=== PATIENT | male | born 1955 | race Two or more races ===

== ENCOUNTER 2018-03-31 12:58 | Inpatient (IN) | payer OTHER, MEDICAID ==
[2018-03-31 13:12] LABS: ADD MAN DIFF? NO
[2018-03-31 13:15] LABS: WHITE BLOOD COUNT 6.9 10^3/ul (4.8-10.8)
[2018-03-31 13:15] LABS: BASOPHILS % 0.4 % (0.0-2.0); EOSINOPHILS # 0.2 10^3/ul (0.0-0.5); EOSINOPHILS % 2.5 % (0.0-7.0); HEMATOCRIT 45.9 % (42.0-52.0); LYMPHOCYTES % 28.4 % (15.0-51.0); MEAN CORPUSCULAR HEMOGLOBIN 28.9 pg (29.0-33.0); MEAN CORPUSCULAR HGB CONC 34.9 g/dl (32.0-37.0); MONOCYTE # 0.6 10^3/ul (0.3-0.9); MONOCYTES % 9.2 % (0.0-11.0); NEUTROPHIL # 4.1 10^3/ul (1.6-7.5); NEUTROPHILS % 59.2 % (39.0-77.0); PLATELET COUNT 280 10^3/UL (140-415); RED BLOOD COUNT 5.53 10^6/ul (4.70-6.10); RED CELL DISTRIBUTION WIDTH 12.3 % (11.5-14.5)
[2018-03-31] MEDS: morphine 4 MG/ML VIAL IV ×2 (13:18→19:45)
[2018-03-31] MEDS: ONDANSETRON 4 MG INJ IV (13:18)
[2018-03-31] MEDS: NITROGLYCERIN 2% 1 GM OINT PKT TD (13:19)
[2018-03-31 13:36] LABS: ANION GAP 16 (8-16); BLOOD UREA NITROGEN 18 mg/dl (7-20); CALCIUM 9.7 mg/dl (8.4-10.2); CARBON DIOXIDE 21 mmol/L (21-31); CHLORIDE 110 mmol/L (97-110); CREATININE 0.97 mg/dl (0.61-1.24); GLUCOSE 126 mg/dl (70-220); POTASSIUM 4.1 mmol/L (3.5-5.1); SODIUM 143 mmol/L (135-144)
[2018-03-31] MEDS ORDERED: ONDANSETRON 4 MG INJ IV ×2 (14:30→17:00)
[2018-03-31] MEDS ORDERED: ACETAMINOPHEN 325 MG TAB PO (14:30)
[2018-03-31] MEDS ORDERED: NACL 0.9% 3 ML SYG IV (17:00)
[2018-03-31] MEDS ORDERED: NITROGLYCERIN (SL) 0.4 MG TAB SL (17:00)
[2018-03-31] MEDS: ENOXAPARIN 40 MG/0.4 ML SYG SC (17:52)
[2018-03-31] MEDS: FENOFIBRATE 145 MG TAB PO (18:07)
[2018-03-31 19:16] LABS: CREATINE KINASE 194 IU/L (23-200)
[2018-03-31 19:29] LABS: CK INDEX 9.4
[2018-03-31] MEDS ORDERED: ENOXAPARIN 80 MG/0.8 ML SYG SC (20:00)
[2018-03-31] MEDS: TAMSULOSIN (SR) 0.4 MG CAP PO (21:20)
[2018-03-31] MEDS: ATORVASTATIN 20 MG TAB PO (21:20)
[2018-04-01] MEDS: morphine 2 MG INJ IV ×2 (01:45→10:00)
[2018-04-01] MEDS: HEPARIN 1000 UNITS/ML 10 ML INJ IV (02:23)
[2018-04-01] MEDS: SOD CHLORIDE 0.9% 1,000 ML IV ×3 (02:23→23:23)
[2018-04-01 02:42] LABS: CREATINE KINASE 156 IU/L (23-200)
[2018-04-01 02:52] LABS: CK INDEX 7.8
[2018-04-01] MEDS ORDERED: LIDOCAINE 1% (MDV) 10 ML INJ (02:55)
[2018-04-01] MEDS ORDERED: IODIXANOL LOCM 100 ML BTL (02:55)
[2018-04-01] MEDS ORDERED: VERAPAMIL 5 MG INJ (03:00)
[2018-04-01 03:01] LABS: HEMOGLOBIN A1C 5.5 % (0-5.9)
[2018-04-01] MEDS: ASPIRIN 325 MG TAB PO (03:02)
[2018-04-01] MEDS ORDERED: MIDAZOLAM 1 MG/ML 2 ML INJ (03:31)
[2018-04-01] MEDS ORDERED: FENTAnyl 50 MCG/ML VIAL (03:31)
[2018-04-01] MEDS ORDERED: HEPARIN 25000 UNITS/250 ML 250 ML (03:46)
[2018-04-01] MEDS ORDERED: NITROGLYCERIN 50 MG/D5W (PMX) 250 ML IV (04:00)
[2018-04-01] MEDS ORDERED: HEPARIN 1000 UNITS/ML 10 ML INJ IV (04:00)
[2018-04-01] MEDS ORDERED: ACETAMINOPHEN 325 MG TAB PO (04:00)
[2018-04-01] MEDS: HEPARIN 25000 UNITS/250 ML 250 ML IV (05:15)
[2018-04-01] MEDS: ATORVASTATIN 20 MG TAB PO (05:17)
[2018-04-01 05:40] LABS: ADD MAN DIFF? NO
[2018-04-01 05:51] LABS: WHITE BLOOD COUNT 9.4 10^3/ul (4.8-10.8)
[2018-04-01 05:51] LABS: BASOPHILS % 0.2 % (0.0-2.0); EOSINOPHILS # 0.1 10^3/ul (0.0-0.5); EOSINOPHILS % 0.6 % (0.0-7.0); HEMATOCRIT 39.8 % (42.0-52.0); HEMOGLOBIN 13.8 g/dl (14.0-18.0); LYMPHOCYTES # 1.1 10^3/ul (0.8-2.9); LYMPHOCYTES % 11.8 % (15.0-51.0); MEAN CORPUSCULAR HEMOGLOBIN 29.3 pg (29.0-33.0); MEAN CORPUSCULAR HGB CONC 34.7 g/dl (32.0-37.0); MEAN CORPUSCULAR VOLUME 84.5 fl (82.0-101.0); MEAN PLATELET VOLUME 10.1 fl (7.4-10.4); MONOCYTE # 0.4 10^3/ul (0.3-0.9); NEUTROPHIL # 7.8 10^3/ul (1.6-7.5); NEUTROPHILS % 83.1 % (39.0-77.0); PLATELET COUNT 225 10^3/UL (140-415); RED BLOOD COUNT 4.71 10^6/ul (4.70-6.10); RED CELL DISTRIBUTION WIDTH 12.5 % (11.5-14.5)
[2018-04-01 06:23] LABS: CREATINE KINASE 119 IU/L (23-200)
[2018-04-01 06:36] LABS: CK INDEX 7.4
[2018-04-01 06:42] LABS: CK-MB 8.77 ng/ml (0.0-2.4)
[2018-04-01 07:47] LABS: ALANINE AMINOTRANSFERASE 37 IU/L (13-69); ALBUMIN 3.3 g/dl (3.3-4.9); ALBUMIN/GLOBULIN RATIO 1.37; ALKALINE PHOSPHATASE 73 IU/L (42-121); ANION GAP 14 (8-16); ASPARTATE AMINO TRANSFERASE 36 IU/L (15-46); BILIRUBIN,INDIRECT 0.5 mg/dl (0-1.1); BILIRUBIN,TOTAL 0.5 mg/dl (0.2-1.3); BLOOD UREA NITROGEN 13 mg/dl (7-20); CALCIUM 8.7 mg/dl (8.4-10.2); CARBON DIOXIDE 23 mmol/L (21-31); CHLORIDE 108 mmol/L (97-110); GLUCOSE 124 mg/dl (70-220); POTASSIUM 4.1 mmol/L (3.5-5.1); SODIUM 141 mmol/L (135-144); TOTAL PROTEIN 5.7 g/dl (6.1-8.1)
[2018-04-01] MEDS ORDERED: ENOXAPARIN 80 MG/0.8 ML SYG SC (08:00)
[2018-04-01 08:10] LABS: CHOLESTEROL 178 mg/dl (100-200)
[2018-04-01 08:10] LABS: HDL CHOLESTEROL 35 mg/dl (30-78); LDL CHOLESTEROL,CALCULATED 130 mg/dl; TRIGLYCERIDES 63 mg/dl (0-149)
[2018-04-01] MEDS ORDERED: ASPIRIN 81 MG TAB PO (09:00)
[2018-04-01] MEDS ORDERED: AMLODIPINE 5 MG TAB PO (09:00)
[2018-04-01] MEDS: LORATADINE 10 MG TAB PO (09:00)
[2018-04-01] MEDS ORDERED: HYDROCHLOROTHIAZIDE 25 MG TAB PO (09:00)
[2018-04-01] MEDS: ASPIRIN (EC) 81 MG TAB PO (10:01)
[2018-04-01] MEDS: FOLIC ACID 1 MG TAB PO (10:01)
[2018-04-01] MEDS: FENOFIBRATE 145 MG TAB PO (10:01)
[2018-04-01] MEDS: DOCUSATE SODIUM 100 MG CAP PO ×2 (10:01→20:17)
[2018-04-01 12:45] LABS: CREATINE KINASE 84 IU/L (23-200)
[2018-04-01 12:55] LABS: CK INDEX 6.7
[2018-04-01 12:57] LABS: CK-MB 5.61 ng/ml (0.0-2.4)
[2018-04-01] MEDS: morphine LIQ (10 MG/5 ML) CUP PO ×2 (17:03→23:23)
[2018-04-01 19:10] LABS: CREATINE KINASE 80 IU/L (23-200)
[2018-04-01 19:22] LABS: CK INDEX 5.2
[2018-04-01 19:24] LABS: CK-MB 4.18 ng/ml (0.0-2.4)
[2018-04-01] MEDS: TAMSULOSIN (SR) 0.4 MG CAP PO (20:17)
[2018-04-01] MEDS: ATORVASTATIN 80 MG TAB PO (20:17)
[2018-04-02 05:41] LABS: ADD MAN DIFF? NO
[2018-04-02 05:51] LABS: WHITE BLOOD COUNT 6.3 10^3/ul (4.8-10.8)
[2018-04-02 05:51] LABS: BASOPHILS % 0.3 % (0.0-2.0); EOSINOPHILS # 0.2 10^3/ul (0.0-0.5); EOSINOPHILS % 2.4 % (0.0-7.0); HEMATOCRIT 37.4 % (42.0-52.0); HEMOGLOBIN 12.7 g/dl (14.0-18.0); LYMPHOCYTES # 1.5 10^3/ul (0.8-2.9); LYMPHOCYTES % 23.8 % (15.0-51.0); MEAN CORPUSCULAR HEMOGLOBIN 29.2 pg (29.0-33.0); MEAN PLATELET VOLUME 10.2 fl (7.4-10.4); MONOCYTE # 0.6 10^3/ul (0.3-0.9); NEUTROPHILS % 63.2 % (39.0-77.0); PLATELET COUNT 206 10^3/UL (140-415); RED BLOOD COUNT 4.35 10^6/ul (4.70-6.10); RED CELL DISTRIBUTION WIDTH 12.4 % (11.5-14.5)
[2018-04-02 06:13] LABS: PROTIME 14.4 Sec (11.9-14.9); PT RATIO 1.1
[2018-04-02 06:14] LABS: PARTIAL THROMBOPLASTIN TIME 28.1 Sec (25.0-35.0)
[2018-04-02 06:31] LABS: ANION GAP 10 (8-16); BLOOD UREA NITROGEN 13 mg/dl (7-20); CALCIUM 8.5 mg/dl (8.4-10.2); CARBON DIOXIDE 26 mmol/L (21-31); CHLORIDE 110 mmol/L (97-110); CREATININE 0.91 mg/dl (0.61-1.24); GLUCOSE 89 mg/dl (70-220); SODIUM 142 mmol/L (135-144)
[2018-04-02 06:37] LABS: MAGNESIUM 1.6 mg/dl (1.7-2.5)
[2018-04-02] MEDS ORDERED: PROTAMINE 250 MG INJ ×3 (07:00→19:31)
[2018-04-02] MEDS ORDERED: ALBUMIN HUMAN 5% 250 ML INJ (07:00)
[2018-04-02] MEDS ORDERED: HEPARIN 25000 UNITS/250 ML 250 ML (07:49)
[2018-04-02] MEDS ORDERED: NITROGLYCERIN 50 MG/D5W (PMX) 250 ML IV ×2 (08:00→22:00)
[2018-04-02] MEDS: MAGNESIUM SULFATE 3 GM in DEXTROSE 5% 100 ML IVPB (08:36)
[2018-04-02] MEDS: HEPARIN 25000 UNITS/250 ML 250 ML IV (08:36)
[2018-04-02] MEDS: NITROGLYCERIN (SL) 0.4 MG TAB SL ×2 (08:36→12:15)
[2018-04-02] MEDS: FENOFIBRATE 145 MG TAB PO (09:00)
[2018-04-02] MEDS: LORATADINE 10 MG TAB PO (09:00)
[2018-04-02] MEDS: DOCUSATE SODIUM 100 MG CAP PO ×2 (09:00→21:00)
[2018-04-02] MEDS: FOLIC ACID 1 MG TAB PO (09:00)
[2018-04-02] MEDS: ASPIRIN (EC) 81 MG TAB PO (09:15)
[2018-04-02] MEDS ORDERED: MAGNESIUM SULFATE 2 GM/50 ML 50 ML IVPB (09:30)
[2018-04-02] MEDS: SOD CHLORIDE 0.9% 1,000 ML IV ×2 (11:54→12:15)
[2018-04-02] MEDS ORDERED: VANCOMYCIN 1 GM INJ (13:11)
[2018-04-02] MEDS ORDERED: GELATIN SIZE 100 SPONGE (13:11)
[2018-04-02] MEDS ORDERED: THROMBIN 5000 UNIT VIAL (13:11)
[2018-04-02] MEDS ORDERED: INSULIN HUMAN REGULAR 100 UNIT in SOD CHLORIDE 0.9% 99 ML IV (14:30)
[2018-04-02] MEDS ORDERED: EPINEPHrine 4 MG in DEXTROSE 5% 246 ML IV (14:30)
[2018-04-02] MEDS ORDERED: PHENYLephrine 20MG IN 250 ML 250 ML IV (14:30)
[2018-04-02] MEDS ORDERED: MIDAZOLAM 5 ML ×2 (14:40)
[2018-04-02] MEDS ORDERED: PROPOFOL 20 ML (14:40)
[2018-04-02] MEDS ORDERED: PROPOFOL 100 ML (14:40)
[2018-04-02] MEDS ORDERED: AMINOCAPROIC ACID 5 GM INJ ×2 (14:41→14:58)
[2018-04-02] MEDS ORDERED: HEPARIN 1000 UNITS/ML 10 ML INJ ×3 (14:41→17:31)
[2018-04-02] MEDS ORDERED: SUCCINYLCHOLINE CHLORIDE 100 MG/5 ML SYG IV (14:41)
[2018-04-02] MEDS ORDERED: ROCURONIUM 50 MG INJ (14:41)
[2018-04-02] MEDS ORDERED: ALBUMIN HUMAN 25% 300 ML (14:42)
[2018-04-02] MEDS ORDERED: CA CHLORIDE 10% 10 ML SYRINGE ×2 (14:43→14:57)
[2018-04-02] MEDS ORDERED: LIDOCAINE 2% (SDV) 5 ML INJ (14:43)
[2018-04-02] MEDS ORDERED: NA BICARBONATE 8.4% 50 ML SYG ×2 (14:44→14:58)
[2018-04-02] MEDS ORDERED: NITROGLYCERIN 50 MG/D5W (PMX) 250 ML (14:51)
[2018-04-02] MEDS ORDERED: CEFAZOLIN 1 GM INJ (14:55)
[2018-04-02] MEDS ORDERED: POTASSIUM CHLORIDE 40 MEQ INJ (14:56)
[2018-04-02] MEDS ORDERED: ALBUMIN HUMAN 25% 100 ML (14:57)
[2018-04-02] MEDS ORDERED: LIDOCAINE 100 MG SYRINGE (14:57)
[2018-04-02] MEDS ORDERED: MANNITOL 20% 250 ML IV (14:57)
[2018-04-02] MEDS ORDERED: PHENYLephrine 10 MG INJ (14:58)
[2018-04-02] MEDS ORDERED: ALBUMIN HUMAN 25% 100 ML IV (16:30)
[2018-04-02] MEDS: PAPAVERINE 60 MG INJ (16:55)
[2018-04-02] MEDS: HEPARIN 1000 UNITS/ML 10 ML INJ (16:56)
[2018-04-02] MEDS ORDERED: morphine 10 MG INJ ×2 (17:01→20:18)
[2018-04-02] MEDS: POLYMYXIN/BACITRACIN 1L IRRIG IRR (17:28)
[2018-04-02] MEDS: VANCOMYCIN 1 GM INJ (18:52)
[2018-04-02 19:10] LABS: IMMEDIATE SPIN CROSSMATCH 1 6
[2018-04-02 19:10] LABS: TYPE AND SCREEN 1
[2018-04-02 20:08] LABS: IMMEDIATE SPIN CROSSMATCH 1
[2018-04-02] MEDS: niCARdipine 25 MG in SOD CHLORIDE 0.9% 250 ML IV (21:23)
[2018-04-02 21:52] LABS: MODE VENT - AC; MetHgb Mixed Venous 0.4 %; Mixed Venous COHb 0.1 %; Mixed Venous Fraction OxyHgb 76.8 %; Mixed Venous Oxygen Sat 77.2 mmHG (65.0-75.0); Mixed Venous Total Hemglobin 11.4 g/dl; Sample Type BLMV; Site PUL ART LINE
[2018-04-02] MEDS ORDERED: ACETAMINOPHEN 325 MG TAB PO (22:00)
[2018-04-02] MEDS ORDERED: HYDROmorphONE 0.5 MG/0.5 ML SYG IV (22:00)
[2018-04-02] MEDS ORDERED: ONDANSETRON 4 MG INJ IV (22:00)
[2018-04-02] MEDS ORDERED: DOPamine-D5W 1.6 MG/ML 250 ML IV (22:00)
[2018-04-02] MEDS ORDERED: NACL 0.9% 3 ML SYG IV (22:00)
[2018-04-02] MEDS ORDERED: ALBUMIN HUMAN 5% 250 ML IV (22:00)
[2018-04-02 22:17] LABS: AADO2 Arterial 342.4 mmHg (7.0-24.0); Arterial Base Excess -1.1 mmol/L (-3.0-3); Arterial Blood Gas Oxygen Sat 97.9 mmHG (95.0-98.0); Arterial COHb 0.3 % (0.0-3.0); Arterial Fraction of Oxyhgb 97.2 % (93.0-99.0); Arterial HCO3 23.2 mmol/L (22.0-26.0); Arterial MetHb 0.4 % (0.0-1.5); Arterial Total Hemglobin 11.4 g/dl (12.0-18.0); Arterial pCO2 37.3 mmhg (35-45); MODE VENT - AC; Site A-Line
[2018-04-02 22:38] LABS: ADD MAN DIFF? NO
[2018-04-02 22:40] LABS: ABNORMAL IP MESSAGE 1; BASOPHILS % 0.1 % (0.0-2.0); EOSINOPHILS % 0.4 % (0.0-7.0); HEMATOCRIT 27.6 % (42.0-52.0); HEMOGLOBIN 9.8 g/dl (14.0-18.0); LYMPHOCYTES # 0.6 10^3/ul (0.8-2.9); LYMPHOCYTES % 5.8 % (15.0-51.0); MEAN CORPUSCULAR HEMOGLOBIN 30.7 pg (29.0-33.0); MEAN CORPUSCULAR HGB CONC 35.5 g/dl (32.0-37.0); MEAN CORPUSCULAR VOLUME 86.5 fl (82.0-101.0); MEAN PLATELET VOLUME 10.6 fl (7.4-10.4); MONOCYTE # 0.5 10^3/ul (0.3-0.9); MONOCYTES % 5.1 % (0.0-11.0); NEUTROPHIL # 8.6 10^3/ul (1.6-7.5); NEUTROPHILS % 88.2 % (39.0-77.0); PLATELET COUNT 162 10^3/UL (140-415); POSITIVE DIFF @See below; RED BLOOD COUNT 3.19 10^6/ul (4.70-6.10); RED CELL DISTRIBUTION WIDTH 12.5 % (11.5-14.5)
[2018-04-02 22:40] LABS: WHITE BLOOD COUNT 9.8 10^3/ul (4.8-10.8)
[2018-04-02 22:47] LABS: ANION GAP 16 (8-16); BLOOD UREA NITROGEN 12 mg/dl (7-20); CALCIUM 9.7 mg/dl (8.4-10.2); CARBON DIOXIDE 24 mmol/L (21-31); CHLORIDE 109 mmol/L (97-110); CREATININE 0.96 mg/dl (0.61-1.24); GLUCOSE 103 mg/dl (70-220); MAGNESIUM 3.3 mg/dl (1.7-2.5); POTASSIUM 3.8 mmol/L (3.5-5.1); SODIUM 145 mmol/L (135-144)
[2018-04-02 22:59] LABS: INR 1.41; PROTIME 17.5 Sec (11.9-14.9); PT RATIO 1.4
[2018-04-02 23:00] LABS: PARTIAL THROMBOPLASTIN TIME 35.4 Sec (25.0-35.0)
[2018-04-02] MEDS ORDERED: MEPERIDINE 25 MG INJ (23:08)
[2018-04-02] MEDS: MEPERIDINE 25 MG INJ IV (23:18)
[2018-04-02] MEDS: POTASSIUM CHLORIDE 50 ML IVPB (23:23)
[2018-04-02] MEDS: CEFAZOLIN 1 GM/50 ML (PMX) 50 ML IVPB (23:30)
[2018-04-02] MEDS: POTASSIUM CHLORIDE 40 MEQ, CALCIUM CHLORIDE 10% 1 GM in DEXTROSE 5%-0.225% NACL 1,000 ML IV (23:43)
[2018-04-02] MEDS: HYDROmorphONE 0.5 MG/0.5 ML SYG IV (23:56)
[2018-04-03] MEDS: POTASSIUM CHLORIDE 50 ML IVPB ×2 (00:31→02:24)
[2018-04-03] MEDS: HYDROmorphONE 0.5 MG/0.5 ML SYG IV ×4 (00:42→20:09)
[2018-04-03] MEDS: PROPOFOL 100 ML IV ×2 (01:45→10:30)
[2018-04-03] MEDS: MIDAZOLAM 1 MG/ML 2 ML INJ IV (04:03)
[2018-04-03] MEDS: OXYCODONE/ACETAMINOPHEN (5/325) TAB PO ×2 (04:25→18:57)
[2018-04-03 05:10] LABS: ADD MAN DIFF? NO
[2018-04-03 05:11] LABS: AADO2 Arterial 211.9 mmHg (7.0-24.0); Arterial Base Excess -0.2 mmol/L (-3.0-3); Arterial Blood Gas Oxygen Sat 97.1 mmHG (95.0-98.0); Arterial COHb 0.3 % (0.0-3.0); Arterial Fraction of Oxyhgb 96.4 % (93.0-99.0); Arterial HCO3 24.3 mmol/L (22.0-26.0); Arterial MetHb 0.4 % (0.0-1.5); Arterial Total Hemglobin 11.2 g/dl (12.0-18.0); Arterial pCO2 39.2 mmhg (35-45); MODE VENT - AC; Site A-Line
[2018-04-03 05:18] LABS: ABNORMAL IP MESSAGE 1; BASOPHILS % 0.1 % (0.0-2.0); HEMATOCRIT 28.8 % (42.0-52.0); HEMOGLOBIN 9.9 g/dl (14.0-18.0); LYMPHOCYTES # 0.6 10^3/ul (0.8-2.9); LYMPHOCYTES % 6.5 % (15.0-51.0); MEAN CORPUSCULAR HEMOGLOBIN 29.6 pg (29.0-33.0); MEAN CORPUSCULAR HGB CONC 34.4 g/dl (32.0-37.0); MEAN CORPUSCULAR VOLUME 86.2 fl (82.0-101.0); MEAN PLATELET VOLUME 10.8 fl (7.4-10.4); MONOCYTE # 0.7 10^3/ul (0.3-0.9); MONOCYTES % 7.7 % (0.0-11.0); NEUTROPHIL # 7.7 10^3/ul (1.6-7.5); NEUTROPHILS % 85.3 % (39.0-77.0); PLATELET COUNT 200 10^3/UL (140-415); POSITIVE DIFF @See below; RED BLOOD COUNT 3.34 10^6/ul (4.70-6.10); RED CELL DISTRIBUTION WIDTH 12.9 % (11.5-14.5)
[2018-04-03 05:32] LABS: INR 1.32; PROTIME 16.6 Sec (11.9-14.9); PT RATIO 1.3
[2018-04-03 05:34] LABS: ANION GAP 16 (8-16); BLOOD UREA NITROGEN 14 mg/dl (7-20); CARBON DIOXIDE 27 mmol/L (21-31); CHLORIDE 109 mmol/L (97-110); CREATININE 1.01 mg/dl (0.61-1.24); GLUCOSE 112 mg/dl (70-220); POTASSIUM 4.7 mmol/L (3.5-5.1); SODIUM 147 mmol/L (135-144)
[2018-04-03 05:40] LABS: PHOSPHORUS 4.4 mg/dl (2.5-4.9)
[2018-04-03 05:40] LABS: MAGNESIUM 2.5 mg/dl (1.7-2.5)
[2018-04-03] MEDS: SOD CHLORIDE 0.9% 1,000 ML IV ×2 (06:05→16:05)
[2018-04-03] MEDS: CEFAZOLIN 1 GM/50 ML (PMX) 50 ML IVPB ×2 (06:32→13:52)
[2018-04-03] MEDS: MAG SULFATE 2GM IN 50 ML IVPB (07:45)
[2018-04-03] MEDS: DOCUSATE SODIUM 100 MG CAP PO ×2 (07:59→20:07)
[2018-04-03] MEDS: FAMOTIDINE 20 MG INJ IV (08:00)
[2018-04-03] MEDS ORDERED: ACETAMINOPHEN 650MG/20.3ML CUP NGT (08:00)
[2018-04-03] MEDS: FOLIC ACID 1 MG TAB PO (08:17)
[2018-04-03] MEDS: FENOFIBRATE 145 MG TAB PO (08:17)
[2018-04-03] MEDS: MILRINONE 20MG in D5W 100 ML IV (08:35)
[2018-04-03] MEDS: NORepinephrine 8MG/250 ML (PMX 250 ML IV (08:35)
[2018-04-03] MEDS: ACETAMINOPHEN 1000MG/100ML IV 100 ML IVPB (08:35)
[2018-04-03] MEDS: LORATADINE 10 MG TAB PO (08:36)
[2018-04-03] MEDS: FAMOTIDINE 20 MG TAB PO ×2 (09:00→20:08)
[2018-04-03] MEDS: ASPIRIN (EC) 81 MG TAB PO (09:00)
[2018-04-03 10:44] LABS: AADO2 Arterial 154.8 mmHg (7.0-24.0); Arterial Base Excess -3.4 mmol/L (-3.0-3); Arterial Blood Gas Oxygen Sat 96.8 mmHG (95.0-98.0); Arterial COHb 0.3 % (0.0-3.0); Arterial Fraction of Oxyhgb 96.1 % (93.0-99.0); Arterial HCO3 20.3 mmol/L (22.0-26.0); Arterial MetHb 0.4 % (0.0-1.5); Arterial Total Hemglobin 9.3 g/dl (12.0-18.0); Arterial pCO2 31.3 mmhg (35-45); Blood Gas PS 10; MODE VENT - CPAP; Site A-Line
[2018-04-03] MEDS: POTASSIUM CHLORIDE 40 MEQ, CALCIUM CHLORIDE 10% 1 GM in DEXTROSE 5%-0.225% NACL 1,000 ML IV (16:10)
[2018-04-03] MEDS: ATORVASTATIN 80 MG TAB PO ×2 (20:07)
[2018-04-03] MEDS: TAMSULOSIN (SR) 0.4 MG CAP PO ×2 (20:08)
[2018-04-03 21:20] LABS: HEMATOCRIT 28.9 % (42.0-52.0)
[2018-04-04] MEDS: HYDROmorphONE 0.5 MG/0.5 ML SYG IV ×3 (00:12→04:56)
[2018-04-04] MEDS: POTASSIUM CHLORIDE 40 MEQ, CALCIUM CHLORIDE 10% 1 GM in DEXTROSE 5%-0.225% NACL 1,000 ML IV (00:16)
[2018-04-04 05:22] LABS: ADD MAN DIFF? NO
[2018-04-04 05:27] LABS: WHITE BLOOD COUNT 10.4 10^3/ul (4.8-10.8)
[2018-04-04 05:27] LABS: BASOPHILS % 0.1 % (0.0-2.0); HEMATOCRIT 28.3 % (42.0-52.0); HEMOGLOBIN 9.3 g/dl (14.0-18.0); LYMPHOCYTES # 0.9 10^3/ul (0.8-2.9); LYMPHOCYTES % 8.8 % (15.0-51.0); MEAN CORPUSCULAR HEMOGLOBIN 29.1 pg (29.0-33.0); MEAN CORPUSCULAR HGB CONC 32.9 g/dl (32.0-37.0); MEAN CORPUSCULAR VOLUME 88.4 fl (82.0-101.0); MEAN PLATELET VOLUME 11.2 fl (7.4-10.4); MONOCYTE # 1.3 10^3/ul (0.3-0.9); MONOCYTES % 12.9 % (0.0-11.0); NEUTROPHIL # 8.1 10^3/ul (1.6-7.5); NEUTROPHILS % 77.8 % (39.0-77.0); PLATELET COUNT 167 10^3/UL (140-415); RED CELL DISTRIBUTION WIDTH 13.2 % (11.5-14.5)
[2018-04-04 05:47] LABS: PHOSPHORUS 2.9 mg/dl (2.5-4.9)
[2018-04-04 05:48] LABS: ANION GAP 15 (8-16); BLOOD UREA NITROGEN 20 mg/dl (7-20); CALCIUM 9.9 mg/dl (8.4-10.2); CARBON DIOXIDE 29 mmol/L (21-31); CHLORIDE 106 mmol/L (97-110); CREATININE 1.01 mg/dl (0.61-1.24); GLUCOSE 201 mg/dl (70-220); POTASSIUM 5.3 mmol/L (3.5-5.1); SODIUM 145 mmol/L (135-144)
[2018-04-04] MEDS: FOLIC ACID 1 MG TAB PO (08:09)
[2018-04-04] MEDS: FENOFIBRATE 145 MG TAB PO (08:09)
[2018-04-04] MEDS: FAMOTIDINE 20 MG TAB PO ×2 (08:09→20:52)
[2018-04-04] MEDS: DOCUSATE SODIUM 100 MG CAP PO ×2 (08:10→20:52)
[2018-04-04] MEDS: LORATADINE 10 MG TAB PO (08:14)
[2018-04-04] MEDS: ASPIRIN (EC) 81 MG TAB PO (08:14)
[2018-04-04] MEDS: OXYCODONE/ACETAMINOPHEN (5/325) TAB PO ×2 (08:14→15:45)
[2018-04-04] MEDS: ONDANSETRON 4 MG INJ IV (09:46)
[2018-04-04] MEDS: FUROSEMIDE 40 MG INJ IV (14:24)
[2018-04-04] MEDS: TAMSULOSIN (SR) 0.4 MG CAP PO (20:52)
[2018-04-04] MEDS: ATORVASTATIN 80 MG TAB PO (20:52)
[2018-04-04] MEDS: ACETAMINOPHEN 325 MG TAB PO (20:58)
[2018-04-05 05:15] LABS: ADD MAN DIFF? NO
[2018-04-05 05:20] LABS: WHITE BLOOD COUNT 10.9 10^3/ul (4.8-10.8)
[2018-04-05 05:20] LABS: BASOPHILS % 0.2 % (0.0-2.0); EOSINOPHILS # 0.1 10^3/ul (0.0-0.5); EOSINOPHILS % 0.8 % (0.0-7.0); HEMATOCRIT 28.4 % (42.0-52.0); HEMOGLOBIN 9.1 g/dl (14.0-18.0); LYMPHOCYTES # 1.1 10^3/ul (0.8-2.9); LYMPHOCYTES % 9.8 % (15.0-51.0); MEAN CORPUSCULAR HEMOGLOBIN 28.9 pg (29.0-33.0); MEAN CORPUSCULAR VOLUME 90.2 fl (82.0-101.0); MEAN PLATELET VOLUME 11.7 fl (7.4-10.4); MONOCYTE # 1.2 10^3/ul (0.3-0.9); MONOCYTES % 11.4 % (0.0-11.0); NEUTROPHIL # 8.4 10^3/ul (1.6-7.5); NEUTROPHILS % 77.3 % (39.0-77.0); PLATELET COUNT 181 10^3/UL (140-415); RED BLOOD COUNT 3.15 10^6/ul (4.70-6.10); RED CELL DISTRIBUTION WIDTH 13.1 % (11.5-14.5)
[2018-04-05 05:37] LABS: ALANINE AMINOTRANSFERASE 39 IU/L (13-69); ALBUMIN 3.2 g/dl (3.3-4.9); ALBUMIN/GLOBULIN RATIO 1.18; ALKALINE PHOSPHATASE 52 IU/L (42-121); ANION GAP 10 (8-16); ASPARTATE AMINO TRANSFERASE 31 IU/L (15-46); BILIRUBIN,INDIRECT 0.9 mg/dl (0-1.1); BILIRUBIN,TOTAL 0.9 mg/dl (0.2-1.3); BLOOD UREA NITROGEN 29 mg/dl (7-20); CALCIUM 8.7 mg/dl (8.4-10.2); CARBON DIOXIDE 30 mmol/L (21-31); CHLORIDE 107 mmol/L (97-110); CREATININE 1.11 mg/dl (0.61-1.24); GLUCOSE 119 mg/dl (70-220); MAGNESIUM 1.8 mg/dl (1.7-2.5); POTASSIUM 4.2 mmol/L (3.5-5.1); SODIUM 143 mmol/L (135-144); TOTAL PROTEIN 5.9 g/dl (6.1-8.1)
[2018-04-05] MEDS: HYDROmorphONE 0.5 MG/0.5 ML SYG IV (07:07)
[2018-04-05] MEDS: FENOFIBRATE 145 MG TAB PO (08:13)
[2018-04-05] MEDS: FAMOTIDINE 20 MG TAB PO ×2 (08:13→20:25)
[2018-04-05] MEDS: FOLIC ACID 1 MG TAB PO (08:13)
[2018-04-05] MEDS: DOCUSATE SODIUM 100 MG CAP PO ×2 (08:13→20:26)
[2018-04-05] MEDS: ASPIRIN (EC) 81 MG TAB PO (08:14)
[2018-04-05] MEDS: LORATADINE 10 MG TAB PO (08:14)
[2018-04-05] MEDS: FUROSEMIDE 40 MG INJ IV (10:35)
[2018-04-05] MEDS: OXYCODONE/ACETAMINOPHEN (5/325) TAB PO ×2 (12:31→22:05)
[2018-04-05] MEDS: ENOXAPARIN 40 MG/0.4 ML SYG SC (18:09)
[2018-04-05] MEDS: ATORVASTATIN 80 MG TAB PO (20:26)
[2018-04-05] MEDS: TAMSULOSIN (SR) 0.4 MG CAP PO (20:27)
[2018-04-06 05:36] LABS: ADD MAN DIFF? NO
[2018-04-06 05:37] LABS: WHITE BLOOD COUNT 12.3 10^3/ul (4.8-10.8)
[2018-04-06 05:37] LABS: BASOPHILS % 0.1 % (0.0-2.0); EOSINOPHILS # 0.2 10^3/ul (0.0-0.5); HEMATOCRIT 29.1 % (42.0-52.0); HEMOGLOBIN 9.6 g/dl (14.0-18.0); LYMPHOCYTES # 1.1 10^3/ul (0.8-2.9); LYMPHOCYTES % 8.9 % (15.0-51.0); MEAN CORPUSCULAR VOLUME 87.9 fl (82.0-101.0); MEAN PLATELET VOLUME 11.1 fl (7.4-10.4); MONOCYTE # 1.4 10^3/ul (0.3-0.9); MONOCYTES % 11.6 % (0.0-11.0); NEUTROPHIL # 9.5 10^3/ul (1.6-7.5); NEUTROPHILS % 76.9 % (39.0-77.0); PLATELET COUNT 227 10^3/UL (140-415); RED BLOOD COUNT 3.31 10^6/ul (4.70-6.10)
[2018-04-06 06:05] LABS: ALANINE AMINOTRANSFERASE 47 IU/L (13-69); ALBUMIN 3.2 g/dl (3.3-4.9); ALKALINE PHOSPHATASE 73 IU/L (42-121); ANION GAP 10 (8-16); ASPARTATE AMINO TRANSFERASE 40 IU/L (15-46); BLOOD UREA NITROGEN 29 mg/dl (7-20); CALCIUM 8.6 mg/dl (8.4-10.2); CARBON DIOXIDE 32 mmol/L (21-31); CHLORIDE 102 mmol/L (97-110); CREATININE 1.06 mg/dl (0.61-1.24); GLUCOSE 115 mg/dl (70-220); SODIUM 140 mmol/L (135-144); TOTAL PROTEIN 6.1 g/dl (6.1-8.1)
[2018-04-06 06:08] LABS: B-TYPE NATRIURETIC PEPTIDE 1710 PG/ML (0-125)
[2018-04-06 06:12] LABS: PHOSPHORUS 2.6 mg/dl (2.5-4.9)
[2018-04-06 06:12] LABS: MAGNESIUM 1.8 mg/dl (1.7-2.5)
[2018-04-06] MEDS: MAGNESIUM SULFATE 1 GM/D5W 100 ML IVPB ×2 (06:41→07:34)
[2018-04-06] MEDS: ENOXAPARIN 40 MG/0.4 ML SYG SC (09:00)
[2018-04-06] MEDS: ASPIRIN (EC) 81 MG TAB PO (09:50)
[2018-04-06] MEDS: FENOFIBRATE 145 MG TAB PO (09:50)
[2018-04-06] MEDS: DOCUSATE SODIUM 100 MG CAP PO ×2 (09:50→21:01)
[2018-04-06] MEDS: FOLIC ACID 1 MG TAB PO (09:50)
[2018-04-06] MEDS: FAMOTIDINE 20 MG TAB PO ×2 (09:51→21:01)
[2018-04-06] MEDS: LORATADINE 10 MG TAB PO (09:51)
[2018-04-06] MEDS: OXYCODONE/ACETAMINOPHEN (5/325) TAB PO ×2 (09:55→23:02)
[2018-04-06] MEDS: FUROSEMIDE 40 MG INJ IV (10:52)
[2018-04-06] MEDS: MAGNESIUM SULFATE 2 GM/50 ML 50 ML IVPB (10:58)
[2018-04-06] MEDS: FUROSEMIDE 20 MG INJ IV (17:21)
[2018-04-06] MEDS: TAMSULOSIN (SR) 0.4 MG CAP PO (21:01)
[2018-04-06] MEDS: ATORVASTATIN 80 MG TAB PO (21:01)
[2018-04-07] MEDS: FUROSEMIDE 20 MG INJ IV ×2 (05:12→17:59)
[2018-04-07 05:27] LABS: ADD MAN DIFF? NO
[2018-04-07 05:33] LABS: BASOPHILS % 0.3 % (0.0-2.0); EOSINOPHILS # 0.3 10^3/ul (0.0-0.5); EOSINOPHILS % 2.8 % (0.0-7.0); HEMATOCRIT 31.6 % (42.0-52.0); HEMOGLOBIN 10.3 g/dl (14.0-18.0); LYMPHOCYTES # 1.4 10^3/ul (0.8-2.9); LYMPHOCYTES % 13.3 % (15.0-51.0); MEAN CORPUSCULAR HEMOGLOBIN 28.6 pg (29.0-33.0); MEAN CORPUSCULAR HGB CONC 32.6 g/dl (32.0-37.0); MEAN CORPUSCULAR VOLUME 87.8 fl (82.0-101.0); MEAN PLATELET VOLUME 11.1 fl (7.4-10.4); MONOCYTE # 1.2 10^3/ul (0.3-0.9); MONOCYTES % 11.9 % (0.0-11.0); NEUTROPHIL # 7.3 10^3/ul (1.6-7.5); NEUTROPHILS % 71.2 % (39.0-77.0); PLATELET COUNT 266 10^3/UL (140-415); RED CELL DISTRIBUTION WIDTH 12.9 % (11.5-14.5)
[2018-04-07 05:33] LABS: WHITE BLOOD COUNT 10.2 10^3/ul (4.8-10.8)
[2018-04-07 05:57] LABS: MAGNESIUM 2.1 mg/dl (1.7-2.5)
[2018-04-07 05:57] LABS: PHOSPHORUS 3.4 mg/dl (2.5-4.9)
[2018-04-07 06:00] LABS: ANION GAP 11 (8-16); BLOOD UREA NITROGEN 29 mg/dl (7-20); CALCIUM 8.7 mg/dl (8.4-10.2); CARBON DIOXIDE 32 mmol/L (21-31); CHLORIDE 102 mmol/L (97-110); CREATININE 1.08 mg/dl (0.61-1.24); GLUCOSE 128 mg/dl (70-220); POTASSIUM 3.9 mmol/L (3.5-5.1); SODIUM 141 mmol/L (135-144)
[2018-04-07] MEDS: OXYCODONE/ACETAMINOPHEN (5/325) TAB PO ×3 (06:47→20:29)
[2018-04-07] MEDS: ENOXAPARIN 40 MG/0.4 ML SYG SC (09:00)
[2018-04-07] MEDS: ASPIRIN (EC) 81 MG TAB PO (09:51)
[2018-04-07] MEDS: FOLIC ACID 1 MG TAB PO (09:52)
[2018-04-07] MEDS: FAMOTIDINE 20 MG TAB PO ×2 (09:52→21:13)
[2018-04-07] MEDS: FENOFIBRATE 145 MG TAB PO (09:52)
[2018-04-07] MEDS: DOCUSATE SODIUM 100 MG CAP PO ×2 (09:52→21:13)
[2018-04-07] MEDS: LORATADINE 10 MG TAB PO (09:55)
[2018-04-07] MEDS: LIDOCAINE 1% (MDV) 10 ML INJ (13:23)
[2018-04-07] MEDS: HYDROmorphONE 0.5 MG/0.5 ML SYG IV ×2 (16:31→17:59)
[2018-04-07] MEDS: ATORVASTATIN 80 MG TAB PO (21:13)
[2018-04-07] MEDS: TAMSULOSIN (SR) 0.4 MG CAP PO (21:13)
[2018-04-08] MEDS: OXYCODONE/ACETAMINOPHEN (5/325) TAB PO ×5 (04:46→23:20)
[2018-04-08] MEDS: FUROSEMIDE 20 MG INJ IV ×2 (05:29→18:06)
[2018-04-08] MEDS: DOCUSATE SODIUM 100 MG CAP PO ×2 (08:13→20:47)
[2018-04-08] MEDS: ASPIRIN (EC) 81 MG TAB PO (08:14)
[2018-04-08] MEDS: LORATADINE 10 MG TAB PO (08:14)
[2018-04-08] MEDS: FOLIC ACID 1 MG TAB PO (08:14)
[2018-04-08] MEDS: FAMOTIDINE 20 MG TAB PO ×2 (08:14→20:47)
[2018-04-08] MEDS: FENOFIBRATE 145 MG TAB PO (08:14)
[2018-04-08] MEDS: ENOXAPARIN 40 MG/0.4 ML SYG SC (08:27)
[2018-04-08 11:10] LABS: ADD MAN DIFF? NO
[2018-04-08 11:14] LABS: BASOPHILS % 0.2 % (0.0-2.0); EOSINOPHILS # 0.2 10^3/ul (0.0-0.5); EOSINOPHILS % 1.6 % (0.0-7.0); HEMATOCRIT 32.6 % (42.0-52.0); HEMOGLOBIN 10.7 g/dl (14.0-18.0); LYMPHOCYTES # 1.2 10^3/ul (0.8-2.9); LYMPHOCYTES % 9.4 % (15.0-51.0); MEAN CORPUSCULAR HEMOGLOBIN 28.5 pg (29.0-33.0); MEAN CORPUSCULAR HGB CONC 32.8 g/dl (32.0-37.0); MEAN CORPUSCULAR VOLUME 86.9 fl (82.0-101.0); MEAN PLATELET VOLUME 10.4 fl (7.4-10.4); MONOCYTE # 1.3 10^3/ul (0.3-0.9); MONOCYTES % 10.8 % (0.0-11.0); NEUTROPHIL # 9.4 10^3/ul (1.6-7.5); NEUTROPHILS % 77.4 % (39.0-77.0); PLATELET COUNT 353 10^3/UL (140-415); RED BLOOD COUNT 3.75 10^6/ul (4.70-6.10); RED CELL DISTRIBUTION WIDTH 12.5 % (11.5-14.5)
[2018-04-08 11:14] LABS: WHITE BLOOD COUNT 12.2 10^3/ul (4.8-10.8)
[2018-04-08 11:33] LABS: ANION GAP 12 (8-16); BLOOD UREA NITROGEN 29 mg/dl (7-20); CARBON DIOXIDE 31 mmol/L (21-31); CHLORIDE 99 mmol/L (97-110); CREATININE 1.19 mg/dl (0.61-1.24); GLUCOSE 160 mg/dl (70-220); SODIUM 138 mmol/L (135-144)
[2018-04-08] MEDS: TAMSULOSIN (SR) 0.4 MG CAP PO (20:47)
[2018-04-08] MEDS: ATORVASTATIN 80 MG TAB PO (20:47)
[2018-04-09] MEDS: FUROSEMIDE 20 MG INJ IV (06:04)
[2018-04-09] MEDS: OXYCODONE/ACETAMINOPHEN (5/325) TAB PO ×3 (06:05→22:22)
[2018-04-09 07:30] LABS: ADD MAN DIFF? NO
[2018-04-09 07:44] LABS: WHITE BLOOD COUNT 15.1 10^3/ul (4.8-10.8)
[2018-04-09 07:44] LABS: ABNORMAL IP MESSAGE 1; BASOPHIL # 0.1 10^3/ul (0.0-0.1); BASOPHILS % 0.3 % (0.0-2.0); EOSINOPHILS # 0.4 10^3/ul (0.0-0.5); EOSINOPHILS % 2.6 % (0.0-7.0); HEMATOCRIT 33.7 % (42.0-52.0); HEMOGLOBIN 11.2 g/dl (14.0-18.0); LYMPHOCYTES # 1.7 10^3/ul (0.8-2.9); LYMPHOCYTES % 11.3 % (15.0-51.0); MEAN CORPUSCULAR HEMOGLOBIN 28.5 pg (29.0-33.0); MEAN CORPUSCULAR HGB CONC 33.2 g/dl (32.0-37.0); MEAN CORPUSCULAR VOLUME 85.8 fl (82.0-101.0); MEAN PLATELET VOLUME 10.8 fl (7.4-10.4); MONOCYTE # 1.5 10^3/ul (0.3-0.9); MONOCYTES % 10.2 % (0.0-11.0); NEUTROPHIL # 11.3 10^3/ul (1.6-7.5); NEUTROPHILS % 74.9 % (39.0-77.0); PLATELET COUNT 418 10^3/UL (140-415); POSITIVE DIFF @See below; RED BLOOD COUNT 3.93 10^6/ul (4.70-6.10); RED CELL DISTRIBUTION WIDTH 12.5 % (11.5-14.5)
[2018-04-09 08:00] LABS: ALANINE AMINOTRANSFERASE 48 IU/L (13-69); ALBUMIN 3.8 g/dl (3.3-4.9); ALBUMIN/GLOBULIN RATIO 1.22; ALKALINE PHOSPHATASE 109 IU/L (42-121); ANION GAP 10 (8-16); ASPARTATE AMINO TRANSFERASE 41 IU/L (15-46); BILIRUBIN,INDIRECT 0.9 mg/dl (0-1.1); BILIRUBIN,TOTAL 0.9 mg/dl (0.2-1.3); BLOOD UREA NITROGEN 25 mg/dl (7-20); CALCIUM 9.2 mg/dl (8.4-10.2); CARBON DIOXIDE 33 mmol/L (21-31); CHLORIDE 100 mmol/L (97-110); CREATININE 1.13 mg/dl (0.61-1.24); GLUCOSE 117 mg/dl (70-220); SODIUM 139 mmol/L (135-144); TOTAL PROTEIN 6.9 g/dl (6.1-8.1)
[2018-04-09 08:02] LABS: MAGNESIUM 1.8 mg/dl (1.7-2.5)
[2018-04-09 08:08] LABS: B-TYPE NATRIURETIC PEPTIDE 1260 PG/ML (0-125)
[2018-04-09] MEDS: FENOFIBRATE 145 MG TAB PO (08:28)
[2018-04-09] MEDS: DOCUSATE SODIUM 100 MG CAP PO ×2 (08:28→20:14)
[2018-04-09] MEDS: LORATADINE 10 MG TAB PO (08:29)
[2018-04-09] MEDS: FAMOTIDINE 20 MG TAB PO ×2 (08:29→20:14)
[2018-04-09] MEDS: FOLIC ACID 1 MG TAB PO (08:29)
[2018-04-09] MEDS: ASPIRIN (EC) 81 MG TAB PO (08:29)
[2018-04-09] MEDS: ENOXAPARIN 40 MG/0.4 ML SYG SC (08:33)
[2018-04-09 15:09] LABS: ADD UMIC NO; UR ASCORBIC ACID NEGATIVE (NEGATIVE); UR BILIRUBIN (Dip) NEGATIVE (NEGATIVE); UR BLOOD (Dip) NEGATIVE (NEGATIVE); UR CLARITY CLEAR (CLEAR); UR COLOR YELLOW (YELLOW); UR GLUCOSE (Dip) NEGATIVE (NEGATIVE); UR KETONES (Dip) NEGATIVE (NEGATIVE); UR LEUKOCYTE ESTERASE (Dip) NEGATIVE Leu/ul (NEGATIVE); UR NITRITE (Dip) NEGATIVE (NEGATIVE); UR SPECIFIC GRAVITY (Dip) 1.019 (1.003-1.030); UR TOTAL PROTEIN (Dip) NEGATIVE (NEGATIVE); UR UROBILINOGEN (Dip) 2+ mg/dL (NEGATIVE)
[2018-04-09] MEDS: ACETAMINOPHEN 325 MG TAB PO (19:16)
[2018-04-09] MEDS: TAMSULOSIN (SR) 0.4 MG CAP PO (20:14)
[2018-04-09] MEDS: ATORVASTATIN 80 MG TAB PO (20:14)
[2018-04-10] MEDS: OXYCODONE/ACETAMINOPHEN (5/325) TAB PO ×3 (06:42→17:57)
[2018-04-10 07:15] LABS: ADD MAN DIFF? NO
[2018-04-10 07:19] LABS: WHITE BLOOD COUNT 13.2 10^3/ul (4.8-10.8)
[2018-04-10 07:19] LABS: EOSINOPHILS % 3.4 % (0.0-7.0); HEMATOCRIT 34.8 % (42.0-52.0); HEMOGLOBIN 11.3 g/dl (14.0-18.0); LYMPHOCYTES % 12.1 % (15.0-51.0); MEAN CORPUSCULAR HEMOGLOBIN 28.7 pg (29.0-33.0); MEAN CORPUSCULAR HGB CONC 32.5 g/dl (32.0-37.0); MEAN CORPUSCULAR VOLUME 88.3 fl (82.0-101.0); MEAN PLATELET VOLUME 10.1 fl (7.4-10.4); MONOCYTES % 10.1 % (0.0-11.0); NEUTROPHILS % 73.2 % (39.0-77.0); PLATELET COUNT 449 10^3/UL (140-415); RED BLOOD COUNT 3.94 10^6/ul (4.70-6.10); RED CELL DISTRIBUTION WIDTH 12.4 % (11.5-14.5)
[2018-04-10 07:20] LABS: BASOPHIL # 0.1 10^3/ul (0.0-0.1); BASOPHILS % 0.4 % (0.0-2.0); EOSINOPHILS # 0.5 10^3/ul (0.0-0.5); LYMPHOCYTES # 1.6 10^3/ul (0.8-2.9); MONOCYTE # 1.3 10^3/ul (0.3-0.9); NEUTROPHIL # 9.7 10^3/ul (1.6-7.5)
[2018-04-10 07:45] LABS: ANION GAP 15 (8-16); BLOOD UREA NITROGEN 23 mg/dl (7-20); CALCIUM 9.2 mg/dl (8.4-10.2); CARBON DIOXIDE 30 mmol/L (21-31); CHLORIDE 99 mmol/L (97-110); CREATININE 1.09 mg/dl (0.61-1.24); GLUCOSE 104 mg/dl (70-220); POTASSIUM 4.3 mmol/L (3.5-5.1); SODIUM 140 mmol/L (135-144)
[2018-04-10 07:47] LABS: MAGNESIUM 2.1 mg/dl (1.7-2.5)
[2018-04-10] MEDS: FENOFIBRATE 145 MG TAB PO (08:14)
[2018-04-10] MEDS: FAMOTIDINE 20 MG TAB PO (08:14)
[2018-04-10] MEDS: DOCUSATE SODIUM 100 MG CAP PO (08:14)
[2018-04-10] MEDS: FOLIC ACID 1 MG TAB PO (08:14)
[2018-04-10] MEDS: ASPIRIN (EC) 81 MG TAB PO (08:14)
[2018-04-10] MEDS: LORATADINE 10 MG TAB PO (08:14)
[2018-04-10] MEDS: ENOXAPARIN 40 MG/0.4 ML SYG SC (08:21)
== END 2018-04-10 18:58 | disposition home health service (06) | DRG 233 ==
LOC: TEL 04-07 20:37 → E/R 12:58 → ICU 04-01 03:06 → CCL 04-01 03:06 → ICU 04-01 03:06 → CCL 04-01 22:09 → ICU 04-01 22:12
PROC: 4A023N7 Measurement of Cardiac Sampling and Pressure, Left Heart, Percutaneous Approach (ICD-10-PCS; 2018-04-01 03:00)
PROC: B211YZZ Fluoroscopy of Multiple Coronary Arteries using Other Contrast (ICD-10-PCS; 2018-04-01 03:00)
PROC: 021209W Bypass Coronary Artery, Three Arteries from Aorta with Autologous Venous Tissue, Open Approach (ICD-10-PCS; principal; 2018-04-01 03:08)
PROC: 02100Z9 Bypass Coronary Artery, One Artery from Left Internal Mammary, Open Approach (ICD-10-PCS; 2018-04-01 03:08)
PROC: 06BQ4ZZ Excision of Left Saphenous Vein, Percutaneous Endoscopic Approach (ICD-10-PCS; 2018-04-01 03:08)
PROC: 0W9B3ZZ Drainage of Left Pleural Cavity, Percutaneous Approach (ICD-10-PCS; 2018-04-01 03:08)
PROC: 5A1221Z Performance of Cardiac Output, Continuous (ICD-10-PCS; 2018-04-01 03:08)
PROC: 5A1223Z Performance of Cardiac Pacing, Continuous (ICD-10-PCS; 2018-04-01 03:08)
PROC: 30233N1 Transfusion of Nonautologous Red Blood Cells into Peripheral Vein, Percutaneous Approach (ICD-10-PCS; 2018-04-01 03:08)
PROC: 30233K1 Transfusion of Nonautologous Frozen Plasma into Peripheral Vein, Percutaneous Approach (ICD-10-PCS; 2018-04-01 03:08)
PROC: 30233R1 Transfusion of Nonautologous Platelets into Peripheral Vein, Percutaneous Approach (ICD-10-PCS; 2018-04-01 03:08)
DX: I21.4 Non-ST elevation (NSTEMI) myocardial infarction (principal); R57.0 Cardiogenic shock; J90 Pleural effusion, not elsewhere classified; I50.1 Left ventricular failure, unspecified; I11.0 Hypertensive heart disease with heart failure; E78.5 Hyperlipidemia, unspecified; N40.0 Benign prostatic hyperplasia without lower urinary tract symptoms; D64.9 Anemia, unspecified; I25.119 Atherosclerotic heart disease of native coronary artery with unspecified angina pectoris; E87.5 Hyperkalemia; Z87.891 Personal history of nicotine dependence
CPT/HCPCS: 32555; 36415; 36430; 36592; 36600; 71045; 76604; 80048; 80053; 80061; 81003; 82550; 82553; 82803; 82962; 83036; 83735; 83880; 84100; 84484; 85014; 85025; 85610; 85730; 86644; 86850; 86900; 86901; 86920; 87081; 93005; 93306; 93312; 93325; 93458; 93880; 94002; 94003; 94770; 96372; 96374; 96375; 96376; 97110; 97116; 97161; 97530; 99285-25

== ENCOUNTER 2018-05-31 19:59 | Emergency (ER) | payer OTHER ==
[2018-05-31 21:25] LABS: ADD MAN DIFF? NO
[2018-05-31 21:28] LABS: BASOPHILS % 0.6 % (0.0-2.0); EOSINOPHILS # 0.6 10^3/ul (0.0-0.5); EOSINOPHILS % 8.4 % (0.0-7.0); HEMATOCRIT 39.8 % (42.0-52.0); HEMOGLOBIN 12.8 g/dl (14.0-18.0); LYMPHOCYTES # 1.9 10^3/ul (0.8-2.9); LYMPHOCYTES % 29.8 % (15.0-51.0); MEAN CORPUSCULAR HEMOGLOBIN 27.1 pg (29.0-33.0); MEAN CORPUSCULAR HGB CONC 32.2 g/dl (32.0-37.0); MEAN CORPUSCULAR VOLUME 84.1 fl (82.0-101.0); MEAN PLATELET VOLUME 9.7 fl (7.4-10.4); MONOCYTE # 0.7 10^3/ul (0.3-0.9); NEUTROPHIL # 3.3 10^3/ul (1.6-7.5); PLATELET COUNT 299 10^3/UL (140-415); RED BLOOD COUNT 4.73 10^6/ul (4.70-6.10); RED CELL DISTRIBUTION WIDTH 12.8 % (11.5-14.5)
[2018-05-31 21:28] LABS: WHITE BLOOD COUNT 6.5 10^3/ul (4.8-10.8)
[2018-05-31 21:45] LABS: ANION GAP 16 (8-16); BLOOD UREA NITROGEN 21 mg/dl (7-20); CALCIUM 9.8 mg/dl (8.4-10.2); CARBON DIOXIDE 28 mmol/L (21-31); CHLORIDE 108 mmol/L (97-110); CREATININE 1.25 mg/dl (0.61-1.24); GLUCOSE 86 mg/dl (70-220); POTASSIUM 4.8 mmol/L (3.5-5.1); SODIUM 147 mmol/L (135-144)
[2018-05-31 21:57] LABS: TROPONIN-I < 0.012 ng/ml (0.000-0.120)
== END 2018-05-31 22:57 | disposition home or self-care (01) ==
LOC: E/R 19:59
DX: R07.9 Chest pain, unspecified (principal); I10 Essential (primary) hypertension; I25.10 Atherosclerotic heart disease of native coronary artery without angina pectoris; Z79.82 Long term (current) use of aspirin; Z87.891 Personal history of nicotine dependence; Z95.1 Presence of aortocoronary bypass graft
CPT/HCPCS: 36415; 71045; 80048; 84484; 85025; 93005; 99285-25